=== PATIENT | male | born 1980 | race Caucasian/White ===

== ENCOUNTER → 2021-07-22 10:51 | Outpatient (BNVA) | payer OTHER, SELFPAY | PROVIDERS: PCP Emergency Medicine Emergency Medical Services; Referring Provider Emergency Medicine Emergency Medical Services; Visit Provider Specialist | DX: G43.711 Chronic migraine without aura, intractable, with status migrainosus (principal) | CPT/HCPCS: 99204 ==

== ENCOUNTER → 2021-09-23 10:05 | Outpatient (BNVA) | payer OTHER, SELFPAY | PROVIDERS: PCP Emergency Medicine Emergency Medical Services; Visit Provider Specialist | DX: G43.711 Chronic migraine without aura, intractable, with status migrainosus (principal) | CPT/HCPCS: 99213 ==

== ENCOUNTER → 2021-11-19 08:26 | Outpatient (BNVA) | payer OTHER, SELFPAY | PROVIDERS: PCP Emergency Medicine Emergency Medical Services; Visit Provider Specialist | DX: G43.711 Chronic migraine without aura, intractable, with status migrainosus (principal) | CPT/HCPCS: 64615; J0585 ==

== ENCOUNTER → 2022-02-11 09:18 | Outpatient (BNVA) | payer OTHER, SELFPAY | PROVIDERS: PCP Emergency Medicine Emergency Medical Services; Visit Provider Specialist | DX: G43.711 Chronic migraine without aura, intractable, with status migrainosus (principal) | CPT/HCPCS: 64615; 99213; 99214; J0585 ==

== ENCOUNTER → 2022-05-06 08:57 | Outpatient (BNVA) | payer OTHER, SELFPAY | PROVIDERS: PCP Emergency Medicine Emergency Medical Services; Visit Provider Specialist | DX: G43.711 Chronic migraine without aura, intractable, with status migrainosus (principal); G24.3 Spasmodic torticollis; M96.1 Postlaminectomy syndrome, not elsewhere classified | CPT/HCPCS: 64615; 99213; 99214; J0585 ==

== ENCOUNTER 2022-06-16 08:34 | Outpatient (CLI) | payer OTHER, SELFPAY ==
--- NOTE | 2022-06-16 08:45 | MR_ITS ---
WS: [id number] MRI CERVICAL SPINE NONCONTRAST HISTORY: G43.711 - Chronic migraine without aura, intractable. COMPARISON: None available. Technique: Multiplanar, multisequence noncontrast imaging of the cervical spine. Study performed with out contrast as there is no contrast available. Normal cervical alignment with no compression fracture or significant disc space narrowing. Signal within the cervical cord is normal. Visualized posterior fossa is unremarkable. Craniocervical junction, C1 and C2 relationship, odontoid process and soft tissues are normal. Small retrocerebellar arachnoid cyst. C2-C3: Normal. C3-C4: Normal. C4-C5: Mild disc bulging with a central disc protrusion and foraminal osteophytes. Mild facet joint a rthritis. Mild central stenosis and moderate RIGHT foraminal stenosis. Disc osteophyte complex in the RIGHT foramen. C5-C6: Mild disc bulging and facet arthritis. Minimal RIGHT foraminal narrowing due to an osteophyte. Mild facet arthritis. C6-C7: Normal. C7-T1: Normal. Small bilateral cervical chain lymph nodes. There are several lymph nodes with normal [place]. MR/MR cervical spin wo con* [id number] IMPRESSION: 1. No cervical spine fracture or edema. No prevertebral edema. 2. Mild central stenosis with moderate RIGHT foraminal stenosis at C4-5. Centr al disc protrusion with RIGHT foraminal disc osteophyte complex. 3. Mild RIGHT foraminal narrowing at C5-6.
== END 2022-06-16 08:35 | disposition home or self-care (01) ==
LOC: RAD 08:35
PROVIDERS: PCP Emergency Medicine Emergency Medical Services; Visit Provider Specialist
DX: G43.711 Chronic migraine without aura, intractable, with status migrainosus (principal); M48.02 Spinal stenosis, cervical region; M50.20 Other cervical disc displacement, unspecified cervical region; M25.78 Osteophyte, vertebrae
CPT/HCPCS: 72141

== ENCOUNTER → 2022-07-29 09:06 | Outpatient (BNVA) | payer OTHER, SELFPAY | PROVIDERS: PCP Emergency Medicine Emergency Medical Services; Visit Provider Specialist | DX: G43.711 Chronic migraine without aura, intractable, with status migrainosus (principal); G24.3 Spasmodic torticollis; M96.1 Postlaminectomy syndrome, not elsewhere classified; M50.90 Cervical disc disorder, unspecified, unspecified cervical region | CPT/HCPCS: 64615; 99213; J0585 ==

== ENCOUNTER → 2022-10-21 08:25 | Outpatient (BNVA) | payer OTHER, SELFPAY | PROVIDERS: PCP Emergency Medicine Emergency Medical Services; Visit Provider Specialist | DX: G43.711 Chronic migraine without aura, intractable, with status migrainosus (principal); G24.3 Spasmodic torticollis; M50.90 Cervical disc disorder, unspecified, unspecified cervical region | CPT/HCPCS: 64615; 99212; J0585 ==

== ENCOUNTER → 2023-01-26 09:53 | Outpatient (BNVA) | payer OTHER, SELFPAY | PROVIDERS: PCP Emergency Medicine Emergency Medical Services; Visit Provider Anesthesiology Pain Medicine | DX: M50.90 Cervical disc disorder, unspecified, unspecified cervical region (principal); G43.711 Chronic migraine without aura, intractable, with status migrainosus; G24.3 Spasmodic torticollis | CPT/HCPCS: 99205 ==

== ENCOUNTER → 2023-01-27 08:47 | Outpatient (BNVA) | payer OTHER, SELFPAY | PROVIDERS: PCP Emergency Medicine Emergency Medical Services; Visit Provider Specialist | DX: G43.711 Chronic migraine without aura, intractable, with status migrainosus (principal); G24.3 Spasmodic torticollis; M50.90 Cervical disc disorder, unspecified, unspecified cervical region | CPT/HCPCS: 64615; J0585 ==

== ENCOUNTER → 2023-02-02 14:04 | Outpatient (BNVA) | payer OTHER, SELFPAY | PROVIDERS: PCP Emergency Medicine Emergency Medical Services; Visit Provider Anesthesiology Pain Medicine | DX: M79.18 Myalgia, other site (principal); M54.2 Cervicalgia | CPT/HCPCS: 20553; J1030; J3490 ==

== ENCOUNTER → 2023-02-16 09:10 | Outpatient (BNVA) | payer OTHER, SELFPAY | PROVIDERS: PCP Emergency Medicine Emergency Medical Services; Visit Provider Anesthesiology Pain Medicine | DX: M50.90 Cervical disc disorder, unspecified, unspecified cervical region; G24.3 Spasmodic torticollis; G43.711 Chronic migraine without aura, intractable, with status migrainosus | CPT/HCPCS: 99214 ==

== ENCOUNTER → 2023-03-02 13:29 | Outpatient (BNVA) | payer OTHER, SELFPAY | PROVIDERS: PCP Emergency Medicine Emergency Medical Services; Visit Provider Anesthesiology Pain Medicine | DX: M50.90 Cervical disc disorder, unspecified, unspecified cervical region (principal); G24.3 Spasmodic torticollis; M47.892 Other spondylosis, cervical region | CPT/HCPCS: 64490; 64491; 64492; 77002; J1030; J3490 ==

== ENCOUNTER → 2023-03-17 10:54 | Outpatient (BNVA) | payer OTHER, SELFPAY | PROVIDERS: PCP Emergency Medicine Emergency Medical Services; Visit Provider Anesthesiology Pain Medicine | DX: M50.90 Cervical disc disorder, unspecified, unspecified cervical region; G24.3 Spasmodic torticollis; G43.711 Chronic migraine without aura, intractable, with status migrainosus | CPT/HCPCS: 99214 ==

== ENCOUNTER → 2023-04-28 08:16 | Outpatient (BNVA) | payer OTHER, SELFPAY | PROVIDERS: PCP Emergency Medicine Emergency Medical Services; Visit Provider Specialist | DX: G43.909 Migraine, unspecified, not intractable, without status migrainosus (principal) | CPT/HCPCS: 99213 ==

== ENCOUNTER 2023-06-23 09:11 | Outpatient (CLI) | payer OTHER, SELFPAY ==
--- NOTE | 2023-06-23 09:15 | MR_ITS ---
WS: [id number] MRI RIGHT SHOULDER NONCONTRAST TECHNIQUE: Sagittal T2, coronal T1, T2 and proton density imaging. Axial gradient PDE imaging. CLINICAL INFORMATION: R SHOULDER PAIN COMPARISON: None. FINDINGS: Mild degenerative changes of the AC joint. Trace subacromial fluid. Subacromial space is well-preserv ed. Mild tendinopathy distal supraspinatus. Tiny insertional tear. No tendon retraction. Mild chronic thinning of the supraspinatus. Normal infraspinatus. Normal teres minor. Normal subscapularis. Biceps tendon appears intact within t he bicipital groove with postoperative changes. Intra-articular biceps tendon appears intact. Glenoid labrum appears grossly normal. Normal bone marrow signal in the humerus and glenoid. IMPRESSION: 1. Presumed prior postoperative changes at the AC joint with trace subacromial fluid. Subacromial sp tracee is preserved. 2. Slight tendinopathy distal supraspinatus with mild chronic thinning and a tiny insertional tear. No tendon retraction. 3. Rotator cuff is otherwise normal. 4. Biceps tendon appears intact within the bicipital groove. Suspected prior biceps tenodesis. Recom mend correlation with surgical history. 5. Glenoid labrum appears grossly normal. 6. No other acute findings.
== END 2023-06-23 09:12 | disposition home or self-care (01) ==
PROVIDERS: PCP Emergency Medicine Emergency Medical Services; Visit Provider Family Medicine
DX: M25.511 Pain in right shoulder (principal); M67.813 Other specified disorders of tendon, right shoulder
CPT/HCPCS: 73221

== ENCOUNTER → 2023-07-06 14:40 | Outpatient (BNVA) | payer OTHER, SELFPAY | PROVIDERS: PCP Emergency Medicine Emergency Medical Services; Referring Provider Family Medicine; Visit Provider Specialist | DX: M75.81 Other shoulder lesions, right shoulder | CPT/HCPCS: 73030 ==

== ENCOUNTER 2023-07-21 08:43 | Outpatient (RCR) | payer OTHER, SELFPAY | END 2023-08-17 23:59 | disposition home or self-care (01) | LOC: SPT 08:43 | PROVIDERS: Visit Provider Specialist | DX: M75.41 Impingement syndrome of right shoulder (principal) | CPT/HCPCS: 97110; 97161 ==

== ENCOUNTER → 2023-08-04 08:46 | Outpatient (BNVA) | payer OTHER, SELFPAY | PROVIDERS: PCP Family Medicine; Visit Provider Specialist | DX: G43.709 Chronic migraine without aura, not intractable, without status migrainosus (principal) | CPT/HCPCS: 99213 ==

== ENCOUNTER 2023-08-10 12:39 | Outpatient (CLI) | payer OTHER, SELFPAY ==
--- NOTE | 2023-08-10 12:44 | MR_ITS ---
WS: [id number] MRI RIGHT SHOULDER ARTHROGRAM HISTORY: shoulder pain, previous shoulder surgery COMPARISON: 06/23/2023 TECHNIQUE: Post arthrogram imaging submitted. T1 fat-sat images in 3 planes. Good contrast distention of the joint space. As per history there there there is a history of biceps tenodesis. The surgical tract extending over the humeral head is identified. The biceps tendon in the bicipital groove is very poorly visualized and there is prominent decreased signal which may be part of the tendon but also gliosis. Extracapsular portion of the tendon appears normal. There is a small amount of contrast extending into the very distal subscapularis tendon. This is cons istent with an insertion site tear with intrasubstance tear with contrast. No muscle atrophy or edema. No labral tear. Very superficial irregularity of contrast noted along the superior labrum. This is surface fraying. There is no full-thickness tear extending through the labr um. IMPRESSION: 1. Patient is status post biceps tenodesis. The biceps tendon through the bicipital groove is poorly visualized. There is increased low signal which is probably gliosis noted through the bicipital groo ve along with the tendon. 2. Small amount of contrast extends into the very distal subscapularis tendon. The actual tear itsel f is not identified but is probably involving the very distal subscapularis tendon with contrast exte nding along the tendon sheath. 3. Superficial fraying of the superior labrum.
--- NOTE | 2023-08-10 13:00 | IR_ITS ---
WS: [id number] RIGHT SHOULDER ARTHROGRAM UNDER FLUOROSCOPY. PRIOR TO MRI EVALUATION. HISTORY: shoulder pain, previous shoulder surgery COMPARISON: None available. FLUOROSCOPY TIME: 1min [id number] # of spot films: 1 Procedure, risks and complications were explained to the patient. Consent has been obtained. Under fluoroscopic guidance the skin is marked over the medial superior third of the humeral head, cl eansed with ChloraPrep and anesthetized with lidocaine. 22-gauge spinal needle is inserted to the cor janett of the humeral head. Test injection with Omnipaque reveals the needle is appropriately positioned in the joint. A mixture of 10 cc sterile saline, 5 cc Omnipaque and 0.1 mmol gadolinium are injected under fluoroscopic guidance. Patient tolerated the joint distention well. No complications. IMPRESSION: Uncomplicated RIGHT shoulder joint injection prior to MRI.
== END 2023-08-10 12:40 | disposition home or self-care (01) ==
LOC: RAD 12:39
PROVIDERS: PCP Family Medicine; Visit Provider Specialist
DX: M25.511 Pain in right shoulder (principal); Z98.890 Other specified postprocedural states; R93.7 Abnormal findings on diagnostic imaging of other parts of musculoskeletal system
CPT/HCPCS: 23350; 73222; 77002; A9577; Q9966

== ENCOUNTER 2023-08-18 06:00 | Outpatient (RCR) | payer OTHER, SELFPAY | END 2023-09-15 23:59 | disposition home or self-care (01) | LOC: SPT 06:00 | PROVIDERS: PCP Family Medicine; Visit Provider Specialist | DX: M75.41 Impingement syndrome of right shoulder (principal) | CPT/HCPCS: 97110 ==

== ENCOUNTER → 2024-02-08 14:13 | Outpatient (BNVA) | payer OTHER, SELFPAY | PROVIDERS: PCP Family Medicine; Visit Provider Specialist | DX: R03.0 Elevated blood-pressure reading, without diagnosis of hypertension (principal) | CPT/HCPCS: 99213 ==

== ENCOUNTER → 2025-02-12 12:12 | Outpatient (BNVA) | payer OTHER, SELFPAY | PROVIDERS: PCP Family Medicine; Visit Provider Specialist | DX: R03.0 Elevated blood-pressure reading, without diagnosis of hypertension (principal) | CPT/HCPCS: 99214 ==